=== PATIENT | male | born 1985 | race Caucasian/White ===

== ENCOUNTER 2019-02-25 10:43 | Outpatient (CLI) | payer BC ==
--- NOTE | 2019-02-25 11:49 | MRI ---
Lumbar spine MRI without contrast: 02/25/2019 COMPARISON: None HISTORY: Low back pain TECHNIQUE: Multiplanar multisequence MR imaging of the lumbar spine without contrast. FINDINGS: The sagittal STIR imaging demonstrates no focal area of osseous marrow edema. On the basis of 5 lumbar type vertebral bodies, the conus medullaris terminates at the L1 level. T12-L1: Intervertebral disc height and signal intensity is within normal limits with no significant c entral canal or neural foraminal masses. L1-2: There is mild bilateral facet hypertrophy. No significant central canal or neural foraminal dolores nosis. L2-3: Intervertebral disc height and signal intensity is within normal limits with no significant alex tral canal or neural foraminal stenosis L3-4: Intervertebral disc height and signal intensity within normal limits with no significant centra l canal or neural foraminal stenosis. L4-5: There is disc space narrowing and disc desiccation with disc bulge and a central disc protrusio n. This leads to a mild degree of central canal stenosis. There is mild bilateral facet hypertrophy with mild bilateral neural foraminal stenosis, right greater than left. L5-S1: There is disc space narrowing and disc desiccation with disc bulge and superimposed disc extru kelly in the right paracentral region. There is mild associated central canal stenosis with severe right lateral recess stenosis. There is facet hypertrophy bilaterally, right greater than left. There is a mild degree of left neural foraminal stenosis and a moderate degree of right neural foraminal stenosis. The imaged retroperitoneal structures appear grossly unremarkable. The distance between the ventral aspect of the sacrum/coccyx and the posterior aspect of the rectum i s approximately 1.8 cm. IMPRESSION: Degenerative disc disease at L4-5 and L5-S1 as detailed above. Most significant finding i s a significant right paracentral disc herniation at L5-S1 with prominent right lateral recess stenosis.
== END 2019-02-25 10:44 | disposition home or self-care (01) ==
LOC: TBSIIMAG 10:43
PROVIDERS: ATTEND Orthopaedic Surgery
DX: M54.5 Low back pain (principal); M51.37 Other intervertebral disc degeneration, lumbosacral region; M51.36 Other intervertebral disc degeneration, lumbar region; M51.27 Other intervertebral disc displacement, lumbosacral region; M48.07 Spinal stenosis, lumbosacral region
CPT/HCPCS: 72148